=== PATIENT | female | born 1950 | race Hispanic/Latino ===

== ENCOUNTER 2021-08-11 18:04 | Emergency (ER) | payer BC, MEDICARE ==
[~2021-08-11] VITALS: Ht 152.4 cm; Wt 56.7 kg
[2021-08-11] MEDS ORDERED: ACETAMINOPHEN 500 MG TABLET PO ONE (19:00)
[2021-08-11] MEDS ORDERED: 0.9%NACL 1000ML 1,000 ML IV ONE (19:00)
[2021-08-11] MEDS ORDERED: CEFTRIAXONE 1G VIAL IVP ONE (19:00)
[2021-08-11 19:16] LABS: BASOPHILS % (AUTO) 0.3 % (0.0-5.0); HEMATOCRIT 41.3 % (36-48); LYMPHOCYTES % (AUTO) 3.7 % (21.0-51.0); MEAN CORPUSCULAR HEMOGLOBIN 32.6 pg (27.0-33.0); MEAN CORPUSCULAR HGB CONC 34.4 g/dL (32.0-36.0); MEAN CORPUSCULAR VOLUME 94.7 fL (79-99); MONOCYTES % (AUTO) 9.3 % (3.0-13.0); NEUTROPHILS % (AUTO) 86.4 % (40.0-77.0); PLATELET COUNT (AUTO) 150 K/uL (130-400); RED BLOOD CELL COUNT(AUTO) 4.36 MIL/uL (4.00-5.50); WHITE BLOOD COUNT (AUTO) 11.6 K/uL (4.8-10.8)
[2021-08-11 19:27] LABS: CREATININE 0.8 mg/dL (0.5-1.5); POTASSIUM 3.5 mmol/L (3.5-5.1)
[2021-08-11 19:31] LABS: ALBUMIN 3.8 g/dL (3.5-5.0); BILIRUBIN,TOTAL 2.2 mg/dL (0.2-1.0); TOTAL PROTEIN, SERUM 6.9 g/dL (6.0-8.3)
[2021-08-11 19:32] LABS: APPEARANCE,URINE Cloudy (CLEAR); BILIRUBIN,URINE Negative (NEGATIVE); COLOR,URINE Yellow (YELLOW); GLUCOSE, URINE (UA) Negative (NEGATIVE); KETONES,URINE Negative (NEGATIVE); LEUKOCYTE ESTERASE ,URINE Large (NEGATIVE); NITRATE,URINE Positive (NEGATIVE); OCCULT BLOOD,URINE Trace (NEGATIVE); PH,URINE 6.5 (5.0-8.0); PROTEIN,URINE Negative (NEGATIVE); UROBILINOGEN,URINE 0.2 mg/dL (0.2-1.0)
[2021-08-11 19:44] LABS: BACTERIA,URINE Moderate /HPF (None Seen); MUCUS,URINE Rare LPF (None Seen); SQUAMOUS EPITHELIAL CELL,UR 0-2 /HPF (0-2); WBC,URINE 26-50 /HPF (0-1)
[2021-08-11] MEDS ORDERED: IOHEXOL-350 75 ML VIAL IV ONE (20:10)
[2021-08-11 20:59] VITALS: BP 101/54
[2021-08-11] MEDS ORDERED: ACET-66 PO (21:28)
[2021-08-11] MEDS ORDERED: CEPH500B PO (21:28)
== END 2021-08-11 21:38 | disposition home or self-care (01) ==
LOC: EDH 18:04
DX: N39.0 Urinary tract infection, site not specified (principal); Z20.822 Contact with and (suspected) exposure to COVID-19
CPT/HCPCS: 36415; 71045; 74177; 80053; 81001; 83605; 85025; 87040 ×2; 87077; 87088; 87186; 87635; 87804 ×2; 96361; 96374; 99284; C9803; J0696; J7030; Q9967

== ENCOUNTER 2022-08-19 20:30 | Emergency (ER) | payer MEDICARE ==
[~2022-08-19] VITALS: Ht 152.4 cm; Wt 59.0 kg
[~2022-08-19 20:30] MED LIST: ACET-66 PO; CEPH500B PO
[2022-08-19 20:32] VITALS: BP 165/85
[2022-08-19] MEDS ORDERED: IBUPROFEN 600 MG TABLET PO ONE (22:00)
== END 2022-08-19 22:34 | disposition home or self-care (01) ==
LOC: EDH 20:30
DX: S52.591A Other fractures of lower end of right radius, initial encounter for closed fracture (principal); I10 Essential (primary) hypertension; E78.00 Pure hypercholesterolemia, unspecified; W10.9XXA Fall (on) (from) unspecified stairs and steps, initial encounter; Y93.89 Activity, other specified; Y92.89 Other specified places as the place of occurrence of the external cause; Y99.8 Other external cause status
CPT/HCPCS: 29125; 73090; 73100